=== PATIENT | female | born 1955 | race Caucasian/White ===

== ENCOUNTER → 2020-12-01 | Outpatient (CLI) | payer MEDICAID ==
--- NOTE | 2020-12-01 10:47 | XR ---
EXAMINATION TYPE: XR finger LT DATE OF EXAM: 12/01/2020 CLINICAL HISTORY: pain TECHNIQUE: 3 views of the left first digit are submitted. COMPARISON: None FINDINGS: No displaced fracture is seen with certainty. Joint spaces are well-preserved. Correlate for soft tissue injury. IMPRESSION: No acute displaced fracture or dislocation.
[2020-12-01 16:30] LABS: Basophils # (A) 0.04 X 10*3/uL (0.00-0.10); Basophils % (A) 0.5 %; Eosinophils # (A) 0.15 X 10*3/uL (0.04-0.35); Eosinophils % (A) 1.8 %; HCT 40.8 % (37.2-46.3); HGB 13.3 g/dL (12.0-15.0); Lymphocytes # (A) 2.11 X 10*3/uL (0.90-5.00); Lymphocytes % (A) 25.4 %; MCHC 32.6 g/dL (32.0-37.0); MCV 101.2 fL (80.0-97.0); Mean Platelet Volume 9.7 fL (9.5-12.2); Neutrophils # (A) 5.49 X 10*3/uL (1.80-7.70); Neutrophils % (A) 66.1 %; Platelet Count 281 X 10*3/uL (140-440); RBC 4.03 X 10*6/uL (4.10-5.20); RDW 13.5 % (11.5-14.5); WBC 8.31 X 10*3/uL (4.50-10.00)
[2020-12-01 17:35] LABS: African American GFR (CKD) 112.4 (60.0-200.0); Albumin 4.3 g/dL (3.80-4.90); Albumin/Globulin Ratio 2.15 (1.60-3.17); Anion Gap 5.3 mmol/L (4.00-12.00); BUN/Creat Ratio 11.67 Ratio (12.00-20.00); Calcium 8.9 mg/dL (8.7-10.3); Carbon Dioxide 25.7 mmol/L (21.6-31.8); Chol/HDL Ratio 3.9; Potassium 3.9 mmol/L (3.5-5.5); Total Bilirubin 0.3 mg/dL (0.2-1.2); Total Protein 6.3 g/dL (6.2-8.2)
[2020-12-01 20:51] LABS: Hemoglobin A1C 5.8 % (4.0-6.0)
== END | disposition home or self-care (01) ==
LOC: LABWHC1 09:07
PROVIDERS: ATTEND Nurse Practitioner Family
DX: Z13.220 Encounter for screening for lipoid disorders (principal); Z13.228 Encounter for screening for other metabolic disorders; M79.645 Pain in left finger(s)
CPT/HCPCS: 36415; 80053; 80061; 83036; 84443; 85025

== ENCOUNTER → 2021-09-06 | Outpatient (CLI) | payer MEDICAID ==
[2021-09-07 01:43] LABS: HCT 41.5 % (37.2-46.3); HGB 13.1 g/dL (12.0-15.0); MCH 31.7 pg (27.0-32.0); MCHC 31.6 g/dL (32.0-37.0); MCV 100.5 fL (80.0-97.0); Mean Platelet Volume 10.1 fL (9.5-12.2); NRBC Per 100 WBC 0 /100 WBCS (0.0-0.0); Platelet Count 271 X 10*3/uL (140-440); RBC 4.13 X 10*6/uL (4.10-5.20); WBC 7.32 X 10*3/uL (4.50-10.00)
[2021-09-07 03:08] LABS: African American GFR (CKD) 110.9 (60.0-200.0); Anion Gap 10.3 mmol/L (10.00-18.00); BUN/Creat Ratio 13.82 Ratio (12.00-20.00); Blood Urea Nitrogen 8.5 mg/dL (9.0-27.0); Calcium 9.7 mg/dL (8.7-10.3); Carbon Dioxide 24.2 mmol/L (20.0-27.5); Non-African American GFR(CKD) 95.7 (60.0-200.0); Potassium 4.1 mmol/L (3.5-5.5)
== END | disposition home or self-care (01) ==
LOC: LABWHC1 14:22
PROVIDERS: ATTEND Podiatrist Foot & Ankle Surgery
DX: Z01.812 Encounter for preprocedural laboratory examination (principal)
CPT/HCPCS: 36415; 80048; 85027

== ENCOUNTER 2021-09-20 11:48 | Day surgery (SDC) | payer MEDICAID ==
[2021-09-19 09:21] VITALS: BMI 28.3
[~2021-09-20 11:48] MED LIST: DEXAMETHASONE SOD PHOSPHATE 4 MG/ML 1 ML VIAL IV ONE; HYDROmorphone 0.5 MG/0.5 ML SYRINGE IVP PRN; LACTATED RINGERS 1,000 ML IV SCH; LIDOCAINE 1% (10MG/ML) FOR IV START INTRADERMA PRN; MIDAZOLAM 2 MG/2 ML VIAL IV PRN; ONDANSETRON 4 MG/2 ML VIAL IVP ONE; Pre Op ABX Message 1 EACH MISC MISCELLANE ONE
[2021-09-20 12:27] VITALS: TEMP 97.1
[2021-09-20] MEDS ORDERED: fentaNYL (PF) 50 MCG/ML 2 ML AMP ONE (12:50)
[2021-09-20] MEDS ORDERED: MIDAZOLAM 2 MG/2 ML VIAL ONE (12:50)
[2021-09-20] MEDS ORDERED: PROPOFOL 10 MG/ML 20 ML VIAL IV ONE (12:50)
[2021-09-20] MEDS ORDERED: BUPIVACAINE (PF) 0.25% 30 ML VIAL SQ ONE (13:10)
--- NOTE | 2021-09-20 13:44 | P.OP ---
Date of Procedure: 09/20/21 Preoperative Diagnosis: Hypertrophied bone causing painful corn fifth digit left foot Postoperative Diagnosis: Same Procedure(s) Performed: Partial phalangectomy medial and lateral sides approximately interphalangeal joint fifth digit left foot Anesthesia: MAC Surgeon: Raghav Rivera Indications for Procedure: Painful corn fifth digit left foot Description of Procedure: On the date of surgery the patient was taken the operating room in good condition placed on the operating table supine position where an IV was started and adequate IV anesthetic agents were utilized anesthesia was then further supplemented with approximately 4 mL of 0.5% plain Marcaine given in a digital block to the patient's fifth digit of her left foot The patient's left foot and ankle prepped and draped in usual aseptic manner and over heavy web roll padding an ankle tourniquet was placed above the malleoli of the patient's left ankle since left foot and ankle were elevated and exsanguinated of blood utilizing an Esmarch bandage and the ankle tourniquet was inflated to 250 mmHg At this time attention was directed to the dorsal medial side of the fifth digit at the level of the proximal interphalangeal joint where an approximately 1 cm linear incision was made the incision was deepened via sharp dissection down through the level of the subcutaneous tissue layers all neurovascular structures countered were identified and retracted medially utilizing an oscillating bur the hyperostosis present on the medial side of the proximal interphalangeal joint was craterized throughout the surgical procedure copious amounts of sterile saline solution was used to irrigate the surgical site At this time attention was directed to the lateral side of the proximal interph alangeal joint fifth digit left foot where the exact same procedure was performed on the lateral side of the proximal interphalangeal joint. An copious amounts sterile saline solution was used to irrigate the surgical sites skin incisions were then coaptated and maintained utilizing 4-0 line simple interrupted suture Adaptic 4 x 4's and 2 inch Chivo was used to dress the site and was covered with 2 inch Coban wrap The patient tolerated the surgery and anesthesia well was taken to recovery room in good postoperative condition she was eventually discharged in good condition having been given verbal and written home care instructions and a follow-up appointment in one week's time
[2021-09-20 14:17] VITALS: BP 108/72; PULSE 76; RESP 18
== END 2021-09-20 14:30 | disposition home or self-care (01) ==
LOC: OR 11:48
PROVIDERS: ATTEND Podiatrist Foot & Ankle Surgery
DX: L84 Corns and callosities (principal); F17.200 Nicotine dependence, unspecified, uncomplicated; Z98.891 History of uterine scar from previous surgery; Z98.890 Other specified postprocedural states; E78.5 Hyperlipidemia, unspecified; Z79.899 Other long term (current) drug therapy
CPT/HCPCS: 28124; J2250; J1100; J2405; J3010; J2704

== ENCOUNTER → 2023-08-09 | Day surgery (SDC) | payer MEDICAID ==
[2023-08-07 16:14] VITALS: BMI 28.3
[~2023-08-09] MED LIST changes: -DEXAMETHASONE SOD PHOSPHATE 4 MG/ML 1 ML VIAL IV ONE; -HYDROmorphone 0.5 MG/0.5 ML SYRINGE IVP PRN; -MIDAZOLAM 2 MG/2 ML VIAL IV PRN; -ONDANSETRON 4 MG/2 ML VIAL IVP ONE; +PROPOFOL 10 MG/ML 20 ML VIAL IV ONE; -Pre Op ABX Message 1 EACH MISC MISCELLANE ONE
[2023-08-09] MEDS: IV FLUID CONTINUATION 900 ML IV ONE ×2 (06:57→14:01)
[2023-08-09 13:30] VITALS: RESP 16; TEMP 97.1
--- NOTE | 2023-08-09 14:28 | P.PCN ---
Date of Procedure: 08/09/23 Procedure(s) Performed: BRIEF HISTORY: Patient is a 68-year-old pleasant white female scheduled for an elective colonoscopy as a part of screening for colon cancer and positive Cologuard. PROCEDURE PERFORMED: Colonoscopy snare polypectomy. PREOPERATIVE DIAGNOSIS: Screening for colon cancer/positive Cologuard. IV sedation per Anesthesia. PROCEDURE: After informed consent was obtained, the patient, was brought into the endoscopy unit. IV sedation was administered by Anesthesia under continuous monitoring. Digital rectal examination was normal. Initially the Olympus CF-160 flexible video colonoscope was then inserted in the rectum, gradually advanced into the cecum without any difficulty. Careful examination was performed as the scope was gradually being withdrawn. Ileocecal valve and the appendiceal orifice were visualized and appeared normal. Prep was excellent. Mucosa of the cecum, ascending colon, did not look. The hepatic flexure there was a 7 mm and 1 cm flat polyp removed by snare polypectomy. In the transverse colon there is a 5 mm polyp removed by snare polypectomy. In the sigmoid colon there was a 1 cm flat polyp removed by snare polypectomy. In the proximal rectum there was another 1 cm polyp removed by snare polypectomy. Scattered sigmoid diverticulosis seen. Retroflexion was performed in the rectum and no lesions were seen. The patient tolerated the procedure well. IMPRESSION: 7 mm and 1 cm flat hepatic polyp status post polypectomy 1 cm flat sigmoid colon polyp status post polypectomy 5 mm transverse colon polyp status post polypectomy 1 cm proximal rectal polyp status post polypectomy RECOMMENDATIONS: Findings of this examination were discussed with the patient as well as her family. She was advised to follow-up with the biopsy results. If the biopsy reveals adenoma she can have repeat colonoscopy in 3 years..
[2023-08-09 14:58] VITALS: BP 114/68; PULSE 80
== END ==
LOC: ORWHC2ENDO 12:05
PROVIDERS: ATTEND Internal Medicine Gastroenterology
DX: D12.3 Benign neoplasm of transverse colon (principal); D12.5 Benign neoplasm of sigmoid colon; E78.5 Hyperlipidemia, unspecified; F17.210 Nicotine dependence, cigarettes, uncomplicated; Z79.899 Other long term (current) drug therapy
CPT/HCPCS: 88305; 45385; J2704